=== PATIENT | female | born 1960 ===

== ENCOUNTER 2017-12-03 18:28 | Emergency (ER) | payer BC ==
--- NOTE | 2017-12-03 18:37 | UC ---
Throat Pain/Nasal Dany HPI - HPI Summary HPI Summary: This patient is a 57 year old F presenting to [facility] with a chief complaint of sore throat since 2 weeks ago. The patient reports that the pain diminished after a few days but she notes that it worsened again within the past few days. The patient reports the pain feels like cutting all over in her throat. The patient rates the pain 9/10 in severity. Symptoms aggravated by nothing. Symptoms alleviated by nothing. Patient reports tongue pain, pain in swallowing , left thumb pain and rhinorrhea. The patient reports that the pain worsens at night and has made it difficult for her to sleep. Patient denies fever. The patient has hx of acid reflux. - History of Current Complaint Stated Complaint: THROAT PAIN Time Seen by Provider: 12/03/17 18:30 Hx Obtained From: Patient Hx Last Menstrual Period: HYSTERECTOMY Onset/Duration: Gradual Onset, Lasting Weeks - 2 weeks, Still Present Severity: Mild Associated Signs & Symptoms: Positive: Dysphagia, Sinus Discomfort, Nasal Discharge. Negative: Fever - Allergies/Home Medications Allergies/Adverse Reactions: Allergies Allergy/AdvReac Type Severity Reaction Status Date / Time Sulfa (Sulfonamide Allergy Difficulty Verified 12/03/17 18:42 Antibiotics) Breathing Home Medications: Home Medications Insulin Degludec [Tresiba Flextouch U-100] 12/03/17 [History] hydroCHLOROthiazide [Hydrochlorothiazide] 12/03/17 [History] PMH/Surg Hx/FS Hx/Imm Hx GI/ History: Gastroesophageal Reflux - Surgical History Surgical History: Yes Surgery Procedure, Year, and Place: HYSTERECTOMY. RIGHT SHOULDER OPERATION R/T BONE SPUR. CHOLECYSTECTOMY. APPENDECTOMY - Family History Known Family History: Positive: None Family History: denies cardiovascular disease in family lineage - Social History Alcohol Use: Rare Substance Use Type: None Smoking Status (MU): Never Smoked Tobacco Review of Systems Constitutional: Negative - negative fever ENT: Sore Throat, Nasal Discharge, Other - tongue pain Respiratory: Negative - negative cough Musculoskeletal: Arthralgia - left thumb pain Neurological: Negative - negative headache All Other Systems Reviewed And Are Negative: Yes Physical Exam - Summary Physical Exam Summary: General: well-appearing, no pain distress Skin: warm, color reflects adequate perfusion, dry Head: normal Eyes: EOMI, SOFIE ENT: posterior oropharynx erythema, no exudates Neck: supple, nontender Respiratory: CTA, breath sounds present Cardiovascular: RRR Abdomen: soft, nontender Bowel: present Musculoskeletal: normal, strength/ROM intact, the patient is reporting at her right thumb PIP that appears normal Neurological: sensory/motor intact, A&O x3 Psychological: affect/mood appropriate Triage Information Reviewed: Yes Vital Signs Reviewed: Yes Diagnostics - Radiology Left thumb XR Xray Interpretation: No Acute Changes - IMPRESSION: No fracture of the right thumb is noted. Dr. Logan has reviewed this report. Radiology Interpretation Completed By: Radiologist Throat Pain/Nasal Course/Dx - Course Course Of Treatment: THUMB SPICA SPLINT APPLIED BY NURSING. F/U PMD AND ORTHOPEDICS; RETURN FOR RECHECK IF WORSE. - Differential Dx/Diagnosis Provider Diagnoses: PHARYNGITIS. RIGHT THUMB TRIGGER FINGER Discharge - Sign-Out/Discharge Documenting (check all that apply): Patient Departure - Discharge Plan Condition: Stable Disposition: HOME Prescriptions: Amoxicillin/Clavulanate TAB* [Augmentin TAB 875*] 875 mg PO BID #20 tab Patient Education Materials: Pharyngitis (ED), Trigger Finger (ED) Referrals: [facility] [Outside] Umm Everett MD [Primary Care Provider] - Aric Calderon MD [Medical Doctor] - Additional Instructions: FOLLOW UP WITH YOUR PRIMARY CARE DOCTOR AND ORTHOPEDICS. GET RECHECKED FOR ANY WORSENING OF YOUR CONDITION OR QUESTIONS OR CONCERNS. - Billing Disposition and Condition Condition: STABLE Disposition: Home
--- NOTE | 2017-12-03 19:05 | RAD ---
Indication: Right thumb injury. 3 views of the right thumb demonstrates no fracture. No other bone or joint abnormality is identified. IMPRESSION: No fracture of the right thumb is noted.
== END 2017-12-03 19:35 | disposition home or self-care (01) ==
LOC: UCEAST 18:28
DX: J02.9 Acute pharyngitis, unspecified (principal); M65.311 Trigger thumb, right thumb; R13.10 Dysphagia, unspecified; J34.89 Other specified disorders of nose and nasal sinuses; K21.9 Gastro-esophageal reflux disease without esophagitis; Z88.2 Allergy status to sulfonamides
CPT/HCPCS: 99213; G0463

== ENCOUNTER 2018-03-07 09:54 | Day surgery (SDC) | payer BC ==
--- NOTE | 2018-02-24 12:43 | HP ---
HISTORY AND PHYSICAL: DATE OF ADMISSION/SURGERY: 03/07/18 [facility] CHIEF COMPLAINT: Numbness and tingling in the right hand and locking of the right thumb. HISTORY OF PRESENT ILLNESS: Jeannie is a 57-year-old woman who has locking of her right thumb and numbness and tingling in the median nerve distribution of her right hand. She is diagnosed with carpal tunnel syndrome on the right and a right trigger thumb. She presents for right trigger thumb release and right carpal tunnel release. PAST MEDICAL HISTORY: 1. Type 2 diabetes. 2. Hypothyroidism. PAST SURGICAL HISTORY: 1. Hysterectomy. 2. Shoulder surgery. 3. Cholecystectomy. MEDICATIONS: 1. Metformin 1000 mg p.o. b.i.d. 2. Lantus 100 units t.i.d. 3. Trulicity 1.5 mg/0.5 mL injection subcutaneous once weekly. 4. Levothyroxine sodium 125 mcg p.o. daily. 5. Hydrochlorothiazide 25 mg p.o. daily. 6. Tarceva FlexTouch 100 units/mL, 38 units at bedtime. ALLERGIES: SULFA. FAMILY HISTORY: Type 2 diabetes in both of her parents, hypertension, and stroke. SOCIAL HISTORY: She lives with her spouse. She works as a manager employment. She has never smoked. She denies alcohol use. REVIEW OF SYSTEMS: Positive for sore throat, runny nose, shortness of breath, cough due to sinus problems, peripheral neuropathy in her feet, dizziness, weakness, seasonal allergies, fatigue, and weight gain. Otherwise, negative for cephalic, cardiovascular, respiratory, gastrointestinal, genitourinary, other musculoskeletal, skin, neurologic, endocrine, and hematologic symptoms. PHYSICAL EXAMINATION GENERAL: She is a healthy-appearing very pleasant female in minimal distress at rest. VITAL SIGNS: Height 66 inches, weight 180 pounds, pulse 60, blood pressure 136/ 70, respirations 12, temperature 97.7. HEENT: Exam is unremarkable. She has good range of motion of her neck without pain. No masses are palpated. Her eye movements are concentric. LUNGS: Clear to auscultation. Good inspiratory effort. No wheezing. CARDIAC: Regular rate and rhythm without murmur. PERIPHERAL VASCULAR: She has palpable pulses and no peripheral edema. EXTREMITIES: She has positive Tinel sign of the median nerve at the wrist. She has tenderness at the A1 giovany of the right thumb and locking with flexion. She can extend her fingers well and otherwise make a good fist aside from the thumb. NEUROLOGIC: She is alert and oriented without focal deficits. IMPRESSION: Right carpal tunnel syndrome and right trigger thumb. PLAN/RECOMMENDATIONS: Plan is for right trigger thumb release and right carpal tunnel release. The patient will follow up in approximately 10 days postop. [id number]/[facility] #: [id number] MTDD
[~2018-03-07 09:54] MED LIST: Buffered Lidocaine 0.9% SYRIN* 5 ML/SYR SYRINGE INTRADERM ONE
[2018-03-07] MEDS ORDERED: Insulin LISPRO* 1 UNITS UNIT SUBCUT ONE (10:32)
[2018-03-07] MEDS ORDERED: Midazolam* 1 MG/ML 2 ML VIAL (2 MG) ONE (10:45)
[2018-03-07] MEDS ORDERED: fentaNYL* 50 MCG/ML 2 ML VIAL (100 MCG VIAL) ONE (10:45)
[2018-03-07] MEDS ORDERED: Lidocaine 1% INJ* 10 MG/ML 30 ML SDV ONE (10:48)
[2018-03-07] MEDS ORDERED: Propofol* 10 MG/ML 20 ML BTL IV PUSH ONE (11:41)
[2018-03-07] MEDS ORDERED: Naloxone* 0.4 MG/ML 1 ML VIAL IV PRN (11:43)
[2018-03-07 12:38] VITALS: BP 121/71
--- NOTE | 2018-03-08 02:34 | OP ---
DATE OF OPERATION: 03/07/18 [facility] DATE OF : 60 SURGEON: Megan Elena MD HAND TUBE WINDER: ASPEN Pappas ANESTHESIA: Local MAC. PRE-OP DIAGNOSES: 1. Right thumb trigger finger. 2. Right carpal tunnel syndrome. POST-OP DIAGNOSES: 1. Right thumb trigger finger. 2. Right carpal tunnel syndrome. OPERATIVE PROCEDURE: Right thumb trigger release and right carpal tunnel release. ESTIMATED BLOOD LOSS: Zero. TOURNIQUET TIME: Approximately 20 minutes. INDICATIONS: Jeannie is a 57-year-old female with numbness and tingling in the median nerve distribution of her right hand and clicking and locking of her right thumb. She presents for right trigger thumb release and right carpal tunnel release. DESCRIPTION OF PROCEDURE: The patient was brought to the operating room, was given a sedation anesthetic and a local infiltration of 10 cc of 1% plain lidocaine in the palm of her right hand. The skin of her right hand and forearm was prepped and draped in the usual sterile fashion. The hand and forearm were exsanguinated and the tourniquet elevated to 250 mmHg. A longitudinal incision was made in the palm in line with the ring finger. We dissected through the subcutaneous tissue down to the transverse carpal ligament. The ligament was divided sharply with a knife and then more proximally with the scissors. The nerve was dissected free from the surrounding tissue and there was an area of moderate compression at the mid portion of the ligament. The wound was irrigated and the skin edges reapproximated with 4- 0 nylon suture. Next, a transverse incision was made centered over the A1 giovany of the right thumb. We dissected bluntly through the subcutaneous tissue. The digital neurovascular bundles were located and retracted by the surgical asst, Lynette Rader. The A1 giovany was incised longitudinally completely releasing the tendon, which had some mild abrasion, but no synovitis. The wound was irrigated and skin edges reapproximated with 4-0 nylon suture. Wound was dressed with Xeroform, 4x4, Webril and an Moe wrap. The patient tolerated the procedure well and was brought to the recovery room in good condition. [id number]/[facility] #: [id number] [facility]PITALLizett
== END 2018-03-07 12:51 | disposition home or self-care (01) ==
LOC: OREAST 09:54
PROVIDERS: ATTEND Orthopaedic Surgery
DX: G56.01 Carpal tunnel syndrome, right upper limb (principal); M65.311 Trigger thumb, right thumb; E11.9 Type 2 diabetes mellitus without complications; Z79.84 Long term (current) use of oral hypoglycemic drugs; E03.9 Hypothyroidism, unspecified; Z79.4 Long term (current) use of insulin; D68.51 Activated protein C resistance; I05.9 Rheumatic mitral valve disease, unspecified
CPT/HCPCS: J2250; J2704; J3010

== ENCOUNTER 2018-10-14 23:22 | Emergency (ER) | payer BC ==
[2018-10-14] MEDS ORDERED: Ondansetron INJ* 2 MG/ML VIAL IV ONE (23:43)
[2018-10-14] MEDS ORDERED: NS 0.9% 1000 ML** 1,000 ML IV ONE (23:43)
--- NOTE | 2018-10-14 23:45 | ED ---
Dizziness - HPI Summary HPI Summary: Patient is a 58 y/o F presenting to ED via EMS with complaints of dizziness, N/V , neck pain, BUE numbness. She states that she was sitting and watching TV on 0 when she began to experience a "vibrating" sensation. Patient subsequently became nauseous, started vomiting. Afterwards, she continued to dry heave and was experiencing dizziness, neck pain, fatigue, and BUE numbness. Dizziness is described as feeling light-headed/near syncopal. Patient denies abdominal pain, chest pain, diarrhea, numbness/tingling of feet. She notes no prior similar episodes and reports that she did not take her typical daily morning medications on 10/14/18. Patient claims that she has been told that she might have carpal tunnel syndrome. She also makes note of two previous falls during which she injured her neck. PMHx of diabetes, HTN, neuropathy, GERD, hypothyroidism. FMHx of diabetes, CVA. On triage, pain is rated 9/10, nothing is noted to aggravate/alleviate Sx. Home medications and allergies are reviewed. - History Of Current Complaint Chief Complaint: EDDizziness Stated Complaint: "NAUSEA" PER EMS Time Seen by Provider: 10/14/18 23:32 Hx Obtained From: Patient Onset/Duration: Still Present Timing: Hours - onset 219910/14/18 Severity Currently: Severe Character: Lightheaded, Dizzy Aggravating Factor(s): Nothing Alleviating Factor(s): Nothing Associated Signs And Symptoms: Positive: Nausea, Vomiting, Other: - POSITIVE - DIZZINESS, FATIGUE, NECK PAIN, BUE NUMBNESS, "VIBRATING" SENSATION; NEGATIVE - CHEST PAIN, NUMBNESS/TINGLING OF FEET. Negative: Diarrhea, Chest Pain - Allergies/Home Medications Allergies/Adverse Reactions: Allergies Allergy/AdvReac Type Severity Reaction Status Date / Time Sulfa (Sulfonamide Allergy Difficulty Verified 03/07/18 10:14 Antibiotics) Breathing Home Medications: Home Medications Insulin Degludec [Tresiba Flextouch U-100] 36 units .ROUTE BEDTIME 10/15/18 [ History Confirmed 10/15/18] PMH/Surg Hx/FS Hx/Imm Hx Endocrine/Hematology History: Reports: Hx Diabetes - DOES FINGER STICK WITH MEALS AND HS, Hx Thyroid Disease - HYPO Cardiovascular History: Reports: Hx Hypertension - ON MEDICATION, Other Cardiovascular Problems/Disorders - MITRAL VALVE LEAKAGE Respiratory History: Denies: Hx Asthma, Hx Chronic Obstructive Pulmonary Disease (COPD) GI History: Reports: Hx Gastroesophageal Reflux Disease Denies: Hx Ulcer Sensory History: Reports: Hx Contacts or Glasses - GLASSES Denies: Hx Hearing Aid Opthamlomology History: Reports: Hx Contacts or Glasses - GLASSES - Surgical History Surgery Procedure, Year, and Place: HYSTERECTOMY. RIGHT SHOULDER OPERATION R/T BONE SPUR. CHOLECYSTECTOMY. APPENDECTOMY Hx Anesthesia Reactions: Yes - WITH SHOULDER SURGERY DIFFICULTY WAKING UP Infectious Disease History: No Infectious Disease History: Denies: Hx Hepatitis, Hx Human Immunodeficiency Virus (HIV), Traveled Outside the [place] in Last 30 Days - Family History Known Family History: Negative: Cardiac Disease Family History: denies cardiovascular disease in family lineage - Social History Alcohol Use: Rare Substance Use Type: Reports: None Smoking Status (MU): Never Smoked Tobacco Have You Smoked in the Last Year: No Review of Systems Positive: Fatigue Negative: Chest Pain Positive: Vomiting, Nausea. Negative: Abdominal Pain, Diarrhea Musculoskeletal: Other - POSITIVE - NECK PAIN Neurological: Other - POSITIVE - DIZZINESS, "VIBRATING" SENSATION, BUE NUMBNESS ; NEGATIVE - TINGLING/NUMBNESS OF FEET All Other Systems Reviewed And Are Negative: Yes Physical Exam - Summary Physical Exam Summary: Appearance: well appearing, no pain distress, Skin: warm, dry, reflects adequate perfusion Head/face: normal Eyes: EOMI, SOFIE ENT: mucous membranes moist Neck: supple, non-tender Respiratory: CTA, breath sounds present Cardiovascular: RRR, pulses symmetrical Abdomen: non-tender, soft Bowel Sounds: present Musculoskeletal: normal, strength/ROM intact, no CVA tenderness Neuro: normal, sensory motor intact, A&Ox3 Triage Information Reviewed: Yes Vital Signs On Initial Exam: Initial Vitals Temp Pulse Resp BP Pulse Ox 98.0 F 70 18 138/76 98 10/14/18 23:26 10/14/18 23:26 10/14/18 23:26 10/14/18 23:26 10/14/18 23:26 Vital Signs Reviewed: Yes Diagnostics - Vital Signs Vital Signs Temp Pulse Resp BP Pulse Ox 10/14/18 23:26 98.0 F 70 18 138/76 98 - Laboratory Result Diagrams: 10/15/18 00:19 10/15/18 00:19 Lab Statement: Any lab studies that have been ordered have been reviewed, and results considered in the medical decision making process. - EKG 0005 Cardiac Rate: NL - rate of 79 BPM EKG Rhythm: Sinus Rhythm ST Segment: Non-Specific Summary of EKG Findings: EKG showed sinus rhythm with rate of 79 BPM, left axis , non-specific ST. Dizzy Course/Dx - Course Course Of Treatment: Patient with lightheadedness and other vague complaints with anemia and slight leukocytosis seen on labs. Significant delay in the laboratory running the urinalysis which proved to be negative. Patient now tells us that she's began with these symptoms after donating blood or as she states "double red cells." Vision does have an anemia that is iron deficient which she has had in the past after donating blood like this. This may be causing her symptoms. She will hydrate well, take a multivitamin with iron and follow closely with her primary care physician. - Diagnoses Differential Diagnosis/HQI/PQRI: Anxiety, Benign Paroxysmal Positional Vertigo, Dysrhythmia, GI Bleed, Hyperventilation, Hypovolemia, Myocardial Infarction, Vasovagal Reaction Provider Diagnoses: Lightheadedness, Nausea, Anemia Discharge - Sign-Out/Discharge Documenting (check all that apply): Patient Departure - discharge Patient Received Moderate/Deep Sedation with Procedure: No - Discharge Plan Condition: Improved Disposition: HOME Prescriptions: Ondansetron ODT TAB* [Zofran 4 MG Odt TAB*] 4 mg PO Q8H PRN #12 tab.odt PRN Reason: Nausea Patient Education Materials: Lightheadedness (ED) Referrals: Umm Everett MD [Primary Care Provider] - Additional Instructions: Take a multivitamin with iron. Stay well-hydrated. Call your doctor first thing in the morning to schedule prompt follow-up. Return if worse, passing out , new symptoms, worse or other concerns. - Billing Disposition and Condition Condition: IMPROVED Disposition: Home - Attestation Statements Document Initiated by Scribe: Yes Documenting Scribe: Patsy Baugh Provider For Whom Masone is Documenting (Include Credential): Dr. Edilson Newton MD Scribe Attestation: Patsy Navarro and Pete Baugh, scribed for Dr. Edilson Newton MD on at 0435. Scribe Documentation Reviewed: Yes Provider Attestation: The documentation as recorded by the scribe, Patsy Medina and Pete Baugh accurately reflects the service I personally performed and the decisions made by me, Dr. Edilson Newton MD Status of Scribe Document: Viewed
[2018-10-15 00:30] LABS: ABS Lymphocytes 1.8 10^3/ul (1.0-4.8); ABS Monocytes 0.8 10^3/ul (0-0.8); ABS Neutrophils 9.5 10^3/ul (1.5-7.7); Eosinophil % 0.2 %; Hematocrit 31 % (35-47); Hemoglobin 10.8 g/dL (12.0-16.0); Lymphocyte % 15.1 %; Mean Corpuscular HGB Conc 35 g/dL (31-36); Mean Corpuscular Hemoglobin 33 pg (27-31); Mean Corpuscular Volume 94 fL (80-97); Mean Platelet Volume 6.9 fL (7.4-10.4); Platelet Count 411 10^3/uL (150-450); Red Blood Count 3.26 10^6 /uL (3.70-4.87); Red Cell Distribution Width 13 % (10.5-15); White Blood Count 12.2 10^3/uL (3.5-10.8)
[2018-10-15 00:51] LABS: BUN/Creatinine Ratio 13.4 (8-20); Calcium 9.2 mg/dL (8.6-10.3); EGFR African American 109.4 (>60); EGFR Non-African American 90.4 (>60); Potassium 3.7 mmol/L (3.5-5.0)
[2018-10-15 00:54] LABS: Troponin I 0.01 ng/mL (<0.04)
[2018-10-15 02:38] LABS: Urine Appearance Clear; Urine Color Yellow; Urine Specific Gravity 1.015 (1.010-1.030); Urine Urobilinogen Negative (Negative)
[2018-10-15 02:39] LABS: Urine Bilirubin Negative (Negative); Urine Blood Negative (Negative); Urine Glucose 2+(150 mg/dL) (Negative); Urine Ketones 1+ (Negative); Urine Nitrite Negative (Negative); Urine Protein Negative (Negative)
[2018-10-15 04:21] VITALS: BP 123/70
== END 2018-10-15 03:15 | disposition home or self-care (01) ==
LOC: ED 23:22
DX: R42 Dizziness and giddiness (principal); R11.2 Nausea with vomiting, unspecified; D64.9 Anemia, unspecified; M54.2 Cervicalgia; Z88.2 Allergy status to sulfonamides; E11.9 Type 2 diabetes mellitus without complications; I10 Essential (primary) hypertension; K21.9 Gastro-esophageal reflux disease without esophagitis; R11.0 Nausea
CPT/HCPCS: 36415; 80048; 81003; 84484; 85025; 93005; 96374; 99283; J2405